=== PATIENT | male | born 1970 | race Caucasian/White ===

== ENCOUNTER 2017-12-27 22:26 | Emergency (ER) | payer OTHER ==
[2017-12-27] MEDS ORDERED: MORPHINE 4 MG/ML SYR ONE (23:10)
[2017-12-27] MEDS ORDERED: NA CHLORIDE 0.9% 1,000 ML ONE (23:10)
[2017-12-27] MEDS ORDERED: ONDANSETRON 4 MG/2 ML VIAL ONE (23:12)
[2017-12-27 23:18] LABS: Absolute Lymphocytes (CBC) 2.2 K/uL (0.7-4.9); Absolute Monocytes 0.7 K/uL (0.1-1.3); Absolute Neutrophil 8.3 K/uL (1.8-8.0); Basophils % 0.4 % (0-1.3); Eosinophils % 1.6 % (0-4.4); Hematocrit 48.9 % (39.6-49.0); Lymphocytes % 19.2 % (15.3-44.8); MCH 29.3 pg (27.0-35.0); MPV 8.5 fL (7.6-11.3); Monocytes % 5.9 % (3.3-12.3); RBC Red Blood Cell Count 5.75 M/uL (4.33-5.43)
[2017-12-27 23:32] LABS: Potassium 3.4 mEq/L (3.6-5.0)
[2017-12-27 23:39] LABS: Bilirubin Direct 0.1 mg/dL (0-0.2); Bilirubin Total 0.5 mg/dL (0.3-1.2); Protein, Total 6.7 g/dL (6.0-8.3)
[2017-12-27] MEDS ORDERED: PROMETHAZINE 25 MG TABLET ONE (23:40)
[2017-12-27] MEDS ORDERED: PROMETHAZINE 25 MG/ML VIAL ONE (23:41)
--- NOTE | 2017-12-28 00:18 | EDPHYS ---
Physician Documentation [facility] Name: Steve Banda Jr Age: 47 yrs Sex: Male : 1970 Arrival Date: 12/27/2017 Time: 22:26 Bed 28 Private MD: London Tang R ED Physician Altaf Bañuelos HPI: 12/27 22:58 This 47 yrs old Male presents to ER via Ambulatory with complaints of pkl Abdominal Pain. 22:58 The patient complains of pain in the left flank. Location: left lower quadrant. Onset: pkl The symptoms/episode began/occurred just prior to arrival, 1 hour(s) ago. Associated signs and symptoms: The patient has no apparent associated signs or symptoms. The patient has experienced similar episodes in the past, a few times, H/O Kidney stones. Historical: - Allergies: 22:38 No Known Allergies; aa1 - Home Meds: 22:38 None [Active]; aa1 - PMHx: 22:38 Kidney stones; aa1 - PSHx: 22:38 Lithotripsy; aa1 - Immunization history:: Adult Immunizations up to date. - Social history:: Smoking status: Patient/guardian denies using tobacco. - Ebola Screening: : No symptoms or risks identified at this time. ROS: 22:58 Eyes: Negative for injury, pain, redness, and discharge, ENT: Negative for injury, pkl pain, and discharge, Neck: Negative for injury, pain, and swelling, Cardiovascular: Negative for chest pain, palpitations, and edema, Respiratory: Negative for shortness of breath, cough, wheezing, and pleuritic chest pain, Abdomen/GI: Negative for abdominal pain, nausea, vomiting, diarrhea, and constipation. 22:58 Back: Positive for flank pain, on the left. 22:58 : Negative for urinary symptoms. 22:58 MS/extremity: Negative for acute changes. 22:58 Skin: Negative for rash. 22:58 Neuro: Negative for altered mental status. Exam: 22:58 Head/Face: Normocephalic, atraumatic. Eyes: Pupils equal round and reactive to light, pkl extra-ocular motions intact. Lids and lashes normal. Conjunctiva and sclera are non-icteric and not injected. Cornea within normal limits. Periorbital areas with no swelling, redness, or edema. ENT: Nares patent. No nasal discharge, no septal abnormalities noted. Tympanic membranes are normal and external auditory canals are clear. Oropharynx with no redness, swelling, or masses, exudates, or evidence of obstruction, uvula midline. Mucous membranes moist. Neck: Trachea midline, no thyromegaly or masses palpated, and no cervical lymphadenopathy. Supple, full range of motion without nuchal rigidity, or vertebral point tenderness. No Meningismus. Chest/axilla: Normal chest wall appearance and motion. Nontender with no deformity. No lesions are appreciated. Cardiovascular: Regular rate and rhythm with a normal S1 and S2. No gallops, murmurs, or rubs. Normal PMI, no JVD. No pulse deficits. Respiratory: Lungs have equal breath sounds bilaterally, clear to auscultation and percussion. No rales, rhonchi or wheezes noted. No increased work of breathing, no retractions or nasal flaring. Abdomen/GI: Soft, non-tender, with normal bowel sounds. No distension or tympany. No guarding or rebound. No evidence of tenderness throughout. 22:58 Back: pain, that is moderate, of the left flank. 22:58 : Exam negative for acute changes. 22:58 Musculoskeletal/extremity: Exam is negative for acute changes. 22:58 Skin: Exam negative for rash. 22:58 Neuro: Orientation: is normal, Mentation: is normal, Cranial nerves: grossly normal, Motor: is normal. Vital Signs: 22:38 BP 154 / 106; Pulse 91; Resp 18; Temp 97.6; Pulse Ox 98% on R/A; Weight 115.67 kg; aa1 Height 5 ft. 9 in. (175.26 cm); Pain 02/26; 12/28 00:10 BP 147 / 103; Pulse 78; Resp 18; Pulse Ox 100% on R/A; rk2 12/27 22:38 Body Mass Index 37.66 (115.67 kg, 175.26 cm) aa1 MDM: 12/27 22:52 Patient medically screened. pkl 12/28 00:14 Data reviewed: vital signs, nurses notes, lab test result(s), radiologic studies, CT pkl scan. 12/27 22:57 Order name: Amylase, Serum; Complete Time: 23:59 pkl 06/10 22:57 Order name: Basic Metabolic Panel; Complete Time: 23:59 pkl 12/27 22:57 Order name: CBC with Diff; Complete Time: 23:59 pkl 12/27 22:57 Order name: Creatinine for Radiology; Complete Time: 23:59 pkl 12/27 22:57 Order name: Hepatic Function; Complete Time: 23:59 pkl 12/27 22:57 Order name: Lipase; Complete Time: 23:59 pkl 12/27 22:58 Order name: CT Stone Protocol pkl 12/27 22:57 Order name: IV Saline Lock; Complete Time: 23:15 pkl 12/27 22:57 Order name: Labs collected and sent; Complete Time: 23:15 pkl Administered Medications: 12/27 23:15 Drug: NS 0.9% 1000 ml Route: IV; Rate: 1000 ml; Site: left antecubital; rk2 23:15 Drug: morphine 4 mg Route: IVP; Site: left antecubital; rk2 12/28 00:44 Follow up: Response: No adverse reaction rk2 12/27 23:15 Drug: Zofran 4 mg Route: IVP; Site: left antecubital; rk2 12/28 00:44 Follow up: Response: No adverse reaction rk2 12/27 23:43 Drug: Phenergan 12.5 mg Route: IVP; Site: left antecubital; rk2 12/28 00:43 Follow up: Response: No adverse reaction rk2 00:39 Drug: K-Dur 20 mEq Route: PO; rk2 00:43 Follow up: Response: No adverse reaction rk2 00:39 Drug: TORadol 30 mg Route: IVP; Site: left antecubital; rk2 00:43 Follow up: Response: No adverse reaction rk2 Disposition: 12/28/17 00:17 Discharged to Home. Impression: Left ureteral calculus with mild hydronephrosis and hydroureter. - Condition is Stable. - Prescriptions for Tylenol- Codeine #3 300-30 mg Oral Tablet - take 2 tablet by ORAL route every 6 hours As needed; 30 tablet. Zofran 4 mg Oral Tablet - take 1 tablet by ORAL route every 12 hours As needed; 10 tablet. Flomax 0.4 mg Oral Capsule, Sust. Release 24 hr - take 1 capsule by ORAL route once daily 1/2 hour following the same meal each day; 30 capsule. - Medication Reconciliation Form, Thank You Letter, Antibiotic Education, Prescription Opioid Use form. - Follow up: Camila Marquez MD; When: 1 - 2 days; Reason: Re-evaluation by your physician. Signatures: Dispatcher [employer] Val Davison RN RN aa1 Altaf Bañuelos MD MD pkl Aarti Marshall RN RN rk2 Corrections: (The following items were deleted from the chart) 00:46 00:17 12/28/2017 00:17 Discharged to Home. Impression: Left ureteral calculus with mild rk2 hydronephrosis and hydroureter. Condition is Stable. Forms are Medication Reconciliation Form, Thank You Letter, Antibiotic Education, Prescription Opioid Use. Follow up: Camila Maruqez; When: 1 - 2 days; Reason: Re-evaluation by your physician. pkl
--- NOTE | 2017-12-28 00:18 | ER ---
Nurse's Notes [facility] Name: Steve Banda Jr Age: 47 yrs Sex: Male : 1970 Arrival Date: 12/27/2017 Time: 22:26 Bed 28 Private MD: London Tang R Diagnosis: Left ureteral calculus with mild hydronephrosis and hydroureter Presentation: 12/27 22:37 Presenting complaint: Patient states: sudden onset LLQ pain that radiates to back aa1 approx 45 mins [employer]. Reports hx of kidney stones and is concerned he may have another one. Transition of care: patient was not received from another setting of care. Onset of symptoms was December 27, 2017. Risk Assessment: Do you want to hurt yourself or someone else? Patient reports no desire to harm self or others. Initial Sepsis Screen: Does the patient meet any 2 criteria? No. Patient's initial sepsis screen is negative. Does the patient have a suspected source of infection? Yes: Acute abdominal pain. Care prior to arrival: None. 22:37 Method Of Arrival: Ambulatory aa1 22:37 Acuity: BENJA 3 aa1 Triage Assessment: 22:38 General: Appears in no apparent distress. comfortable, Behavior is calm, cooperative, aa1 appropriate for age. Historical: - Allergies: 22:38 No Known Allergies; aa1 - Home Meds: 22:38 None [Active]; aa1 - PMHx: 22:38 Kidney stones; aa1 - PSHx: 22:38 Lithotripsy; aa1 - Immunization history:: Adult Immunizations up to date. - Social history:: Smoking status: Patient/guardian denies using tobacco. - Ebola Screening: : No symptoms or risks identified at this time. Screenin:00 Abuse screen: Denies threats or abuse. rk2 23:00 Nutritional screening: No deficits noted. Tuberculosis screening: No symptoms or risk rk2 factors identified. Fall Risk None identified. Assessment: 23:00 Pain: Complains of pain in abdomen. GI: Bowel sounds rk2 23:00 General: Appears uncomfortable, well developed, well nourished, Behavior is calm, rk2 cooperative. Neuro: Level of Consciousness is alert, obeys commands, Oriented to person, place, time, situation. Respiratory: Airway is patent Respiratory effort is even, unlabored, Respiratory pattern is regular, symmetrical. Derm: Skin is pink, warm \T\ dry. 23:22 Reassessment: Returned from CT. rk2 23:44 Reassessment: Verbal order from Dr. Bañuelos Phenergan 12.5 mg IV. rk2 Vital Signs: 22:38 BP 154 / 106; Pulse 91; Resp 18; Temp 97.6; Pulse Ox 98% on R/A; Weight 115.67 kg; aa1 Height 5 ft. 9 in. (175.26 cm); Pain 8/10; 12/28 00:10 BP 147 / 103; Pulse 78; Resp 18; Pulse Ox 100% on R/A; rk2 12/27 22:38 Body Mass Index 37.66 (115.67 kg, 175.26 cm) aa1 ED Course: 12/27 22:26 Patient arrived in ED. ds1 22:26 London Tang MD is Private Physician. ds1 22:38 Triage completed. aa1 22:38 Arm band placed on right wrist. aa1 22:40 Aarti Marshall RN is Primary Nurse. rk2 22:52 Altaf Bañuelos MD is Attending Physician. pkl 23:00 Patient has correct armband on for positive identification. rk2 23:00 Pulse ox on. rk2 23:15 CT Stone Protocol Sent. rk2 23:19 CT Stone Protocol In Process Unspecified. EDMS 12/28 00:04 CT completed. Patient tolerated procedure well. Patient moved to CT via wheelchair. eh Patient moved back from CT. 00:15 Camila Marquez MD is Referral Physician. pkl 00:45 No provider procedures requiring assistance completed. IV discontinued. rk2 Administered Medications: 12/27 23:15 Drug: NS 0.9% 1000 ml Route: IV; Rate: 1000 ml; Site: left antecubital; rk2 23:15 Drug: morphine 4 mg Route: IVP; Site: left antecubital; rk2 12/28 00:44 Follow up: Response: No adverse reaction rk2 12/27 23:15 Drug: Zofran 4 mg Route: IVP; Site: left antecubital; rk2 12/28 00:44 Follow up: Response: No adverse reaction rk2 12/27 23:43 Drug: Phenergan 12.5 mg Route: IVP; Site: left antecubital; rk2 12/28 00:43 Follow up: Response: No adverse reaction rk2 00:39 Drug: K-Dur 20 mEq Route: PO; rk2 00:43 Follow up: Response: No adverse reaction rk2 00:39 Drug: TORadol 30 mg Route: IVP; Site: left antecubital; rk2 00:43 Follow up: Response: No adverse reaction rk2 Outcome: 00:17 Discharge ordered by . jaziel 00:45 Discharged to home ambulatory. rk2 00:45 Condition: good 00:45 Discharge instructions given to patient, Prescriptions given X 3. 00:46 Patient left the ED. rk2 Signatures: Dispatcher [employer] Val Davison RN RN aa1 Altaf Bañuelos MD MD pkl Hagler, Ervin eh Sanford, Demi ds1 Aarti Marshall RN RN rk2
[2017-12-28] MEDS ORDERED: POTASSIUM CL SA 10 MEQ TAB PO ONE (00:33)
[2017-12-28] MEDS ORDERED: KETOROLAC 30 MG/ML INJ ONE (00:33)
--- NOTE | 2017-12-28 08:39 | RAD REPORT ---
EXAM DESCRIPTION: CT - Stone Protocol - 12/28/2017 4:30 am CLINICAL HISTORY: Abdominal pain. Right flank pain with vomiting COMPARISON: None. TECHNIQUE: Computed axial tomography of the abdomen pelvis was obtained without oral or IV contrast. Lack of IV and oral contrast limits evaluation of solid organs, bowel, and vessels. Coronal reformat marlen images were obtained and reviewed. A preliminary report was generated by [employer] and r roberto carlos prior to dictation All CT scans are performed using dose optimization technique as appropriate and may include automated exposure control or mA/KV adjustment according to patient size. FINDINGS: Bilateral renal calculi vary from 1-3 millimeters. Mild left hydronephrosis is seen. A 4 m illimeter calculus is present within the proximal left ureter Hounsfield unit 707. A bladder calculus is not present. Fatty infiltration liver seen. The spleen, pancreas and adrenals appear grossly normal There is no evidence of diverticulitis. The appendix appears normal Small bilateral hernias contain fat IMPRESSION: Negative for a genitourinary calculus
== END 2017-12-28 00:46 | disposition home or self-care (01) ==
LOC: ER 22:26
DX: N13.2 Hydronephrosis with renal and ureteral calculous obstruction (principal); Z87.442 Personal history of urinary calculi
CPT/HCPCS: 36415; 74176; 76377; 80048; 80076; 82150; 83690; 85025; 96374; 96375; 99284; J2405; J2550; J7030

== ENCOUNTER 2017-12-30 06:36 | Emergency (ER) | payer OTHER ==
[2017-12-30] MEDS ORDERED: ONDANSETRON 4 MG/2 ML VIAL ONE (07:09)
[2017-12-30] MEDS ORDERED: MORPHINE 4 MG/ML SYR ONE ×2 (07:09→07:58)
[2017-12-30] MEDS ORDERED: NA CHLORIDE 0.9% 1,000 ML ONE (07:09)
[2017-12-30 07:20] LABS: Absolute Lymphocytes (CBC) 1.6 K/uL (0.7-4.9); Absolute Monocytes 0.7 K/uL (0.1-1.3); Absolute Neutrophil 8.8 K/uL (1.8-8.0); Basophils % 0.3 % (0-1.3); Eosinophils % 1.1 % (0-4.4); Hematocrit 47.6 % (39.6-49.0); Lymphocytes % 14.4 % (15.3-44.8); MCH 29.2 pg (27.0-35.0); MCV 85.3 fL (80-100); MPV 8.8 fL (7.6-11.3); Monocytes % 6.5 % (3.3-12.3); RBC Red Blood Cell Count 5.59 M/uL (4.33-5.43)
[2017-12-30 07:25] LABS: Potassium 3.7 mEq/L (3.6-5.0)
[2017-12-30 07:31] LABS: Albumin 3.9 g/dL (3.2-5.5); Bilirubin Direct 0.1 mg/dL (0-0.2); Bilirubin Total 0.7 mg/dL (0.3-1.2); Protein, Total 6.5 g/dL (6.0-8.3)
--- NOTE | 2017-12-30 08:20 | RAD REPORT ---
EXAM DESCRIPTION: CT - Stone Protocol - 12/30/2017 7:17 am CLINICAL HISTORY: Flank pain. COMPARISON: 12/27/2017 TECHNIQUE: Axial images were obtained without oral or IV contrast. Lack of contrast limits solid org an and vascular assessment. The [id number] spans the entirety of the system partially obscuring uppermost abdomen and lung bases. Coronal reformatted images were obtained and reviewed. All CT scans are performed using dose optimization technique as appropriate and may include automated exposure control or mA/KV adjustment according to patient size. FINDINGS: The lower lung bunch are clear. Imaged portions of the liver and spleen show no suspicious findings on non-contrast imaging. The panc reas and adrenal glands are normal. No pathologic lymphadenopathy in the abdomen or pelvis. 4 mm stone in the left ureter demonstrates caudal migration since the comparative study, now the leve l of the superior endplate of L4. Mild left-sided hydronephrosis. Punctate bilateral nephrolithiasis again noted. No bowel obstruction, free air, free fluid or abscess. Normal appendix noted.Small to moderate fat co ntaining umbilical hernia. Small fat containing inguinal hernias bilaterally. No significant bony abnormality. IMPRESSION: Mild caudal migration of the previously noted 4 mm left ureter stone. Mild left hydronep hrosis persists. Bilateral nephrolithiasis again seen.
[2017-12-30] MEDS ORDERED: MEPERIDINE HCL 25 MG/0.5 ML ONE (09:00)
[2017-12-30] MEDS ORDERED: PROMETHAZINE 25 MG/ML VIAL ONE (09:00)
--- NOTE | 2017-12-30 09:16 | EDPHYS ---
Physician Documentation [facility] Name: Steve Banda Jr Age: 47 yrs Sex: Male : 1970 Arrival Date: 12/30/2017 Time: 06:37 Bed 18 Private MD: ED Physician Altaf Bañuelos HPI: 12/30 06:41 This 47 yrs old Male presents to ER via Unassigned with complaints of kav Abdominal Pain, Possible Kidney Stone. 06:41 The patient presents with abdominal pain. Onset: The symptoms/episode began/occurred kav acutely. 06:52 The symptoms do not radiate. Associated signs and symptoms: Pertinent positives: kav nausea, Pertinent negatives: fever, vomiting. The symptoms are described as achy. Modifying factors: The symptoms are alleviated by nothing, the symptoms are aggravated by nothing. Severity of pain: At its worst the pain was a 6 / 10 in the emergency department the pain is unchanged. The patient has experienced similar episodes in the past, chronically, but today's symptoms are worse. The patient has been recently seen at the [facility] Emergency Department, yesterday, for similar complaints labs were performed, CT scan was performed, was given a prescription for pain medications, was given a prescription for an antiemetic, flomax 4 mg po q daily. Seen by Urologist Dr. Liv Greene on 12/29/17 w/ no new prescriptions written. Advised to f/u on 01/11/18. Historical: - Allergies: 06:46 No Known Allergies; aa1 - PMHx: 06:46 Kidney stones; aa1 - PSHx: 06:46 Lithotripsy; aa1 - Immunization history:: Flu vaccine is not up to date. - Social history:: Smoking status: Patient/guardian denies using tobacco. - Ebola Screening: : No symptoms or risks identified at this time. - Family history:: not pertinent. - Hospitalizations: : No recent hospitalization is reported. - History obtained from: Old record. ROS: 06:55 Constitutional: Negative for fever, chills, and weight loss, Eyes: Negative for injury, kav pain, redness, and discharge, ENT: Negative for injury, pain, and discharge, Neck: Negative for injury, pain, and swelling, Cardiovascular: Negative for chest pain, palpitations, and edema, Respiratory: Negative for shortness of breath, cough, wheezing, and pleuritic chest pain, Back: Negative for injury and pain, : Negative for injury, bleeding, discharge, and swelling, MS/Extremity: Negative for injury and deformity, Skin: Negative for injury, rash, and discoloration, Neuro: Negative for headache, weakness, numbness, tingling, and seizure, Psych: Negative for depression, anxiety, suicide ideation, homicidal ideation, and hallucinations, Allergy/Immunology: Negative for hives, rash, and allergies, Endocrine: Negative for neck swelling, polydipsia, polyuria, polyphagia, and marked weight changes, Hematologic/Lymphatic: Negative for swollen nodes, abnormal bleeding, and unusual bruising. 06:55 Abdomen/GI: Positive for abdominal pain, nausea, of the left lower quadrant, Negative for vomiting, diarrhea, abdominal distension. Exam: 06:55 Constitutional: This is a well developed, well nourished patient who is awake, alert, kav and in no acute distress. Head/Face: Normocephalic, atraumatic. Eyes: Pupils equal round and reactive to light, extra-ocular motions intact. Lids and lashes normal. Conjunctiva and sclera are non-icteric and not injected. Cornea within normal limits. Periorbital areas with no swelling, redness, or edema. ENT: Nares patent. No nasal discharge, no septal abnormalities noted. Tympanic membranes are normal and external auditory canals are clear. Oropharynx with no redness, swelling, or masses, exudates, or evidence of obstruction, uvula midline. Mucous membranes moist. Neck: Trachea midline, no thyromegaly or masses palpated, and no cervical lymphadenopathy. Supple, full range of motion without nuchal rigidity, or vertebral point tenderness. No Meningismus. Chest/axilla: Normal chest wall appearance and motion. Nontender with no deformity. No lesions are appreciated. Cardiovascular: Regular rate and rhythm with a normal S1 and S2. No gallops, murmurs, or rubs. Normal PMI, no JVD. No pulse deficits. Respiratory: Lungs have equal breath sounds bilaterally, clear to auscultation and percussion. No rales, rhonchi or wheezes noted. No increased work of breathing, no retractions or nasal flaring. Back: No spinal tenderness. No costovertebral tenderness. Full range of motion. Skin: Warm, dry with normal turgor. Normal color with no rashes, no lesions, and no evidence of cellulitis. MS/ Extremity: Pulses equal, no cyanosis. Neurovascular intact. Full, normal range of motion. Neuro: Awake and alert, GCS 15, oriented to person, place, time, and situation. Cranial nerves II-XII grossly intact. Motor strength 5/5 in all extremities. Sensory grossly intact. Cerebellar exam normal. Normal gait. Psych: Awake, alert, with orientation to person, place and time. Behavior, mood, and affect are within normal limits. 06:55 Abdomen/GI: Inspection: abdomen appears normal, Bowel sounds: normal, Palpation: mild abdominal tenderness, in the left lower quadrant. Vital Signs: 06:46 BP 157 / 114; Pulse 81; Resp 18; Temp 97.0; Pulse Ox 98% on R/A; Weight 115.67 kg; aa1 Height 5 ft. 9 in. (175.26 cm); Pain 7/10; 07:40 BP 156 / 107; Pulse 68; Resp 18 S; Temp 97.0(TE); Pulse Ox 97% on R/A; Pain 8/10; aa5 09:01 BP 134 / 94; Pulse 79; Resp 18; Pulse Ox 97% on R/A; mh5 06:46 Body Mass Index 37.66 (115.67 kg, 175.26 cm) aa1 MDM: 06:40 Medical screening is not applicable. [facility] 08:13 Data reviewed: vital signs, nurses notes. ED course: patient continued to c/o pain. kav Morphine 4 mg ordered. 08:37 ED course: pt continue to c/o pain and nausea. he reports that "...the morphine is not kav relieving the pain" Demerol 25 mg w/ Phenergan 12.5 mg diluted with NS iv x 1 dose. 09:02 Physician consultation: Liv Greene FUNCTIONAL CONSULTANT was called at 09:05, was contacted at 09:05, [facility] regarding patient's condition, HALLE Greene was called by the patient's when I was in the room. She advised to continue with current treatment plan for pain, continue Flomax and f/u with her office for continued evaluation and care.. 12/30 06:52 Order name: Basic Metabolic Panel; Complete Time: 08:00 [facility] 12/30 08:00 Interpretation: Normal except: GFR 77. 12/30 06:52 Order name: CBC with Diff; Complete Time: 08:00 v 12/30 08:00 Interpretation: WBC 11.4; RBC 5.59; MADISON% 77.7; LYM% 14.4; NEUT A 8.8. 12/30 06:52 Order name: Creatinine for Radiology; Complete Time: 08:01 12/30 08:01 Interpretation: Within normal limits. 12/30 06:52 Order name: Hepatic Function; Complete Time: 08:01 12/30 08:01 Interpretation: Within normal limits. 12/30 06:52 Order name: Lipase; Complete Time: 08:01 12/30 08:01 Interpretation: Within normal limits. 12/30 06:52 Order name: Urine Microscopic Only 12/30 06:59 Order name: CT Stone Protocol: LLQ Abdominal Pain; PMXH: Nephrolithiasis; Complete [facility] Time: 08:38 12/30 08:41 Interpretation: Abnormal: 4mm stone left ureter with mild left hydronephrosis. 12/30 08:16 Order name: Urine Dipstick--Ancillary (enter results) 12/30 06:52 Order name: IV Saline Lock; Complete Time: 07:35 v 12/30 06:52 Order name: Labs collected and sent; Complete Time: 07:35 ka 12/30 06:52 Order name: Urine Dipstick-Ancillary (obtain specimen); Complete Time: 07:35 kav Administered Medications: 07:08 Drug: NS 0.9% 1000 ml Route: IV; Rate: 1000 ml; Site: right antecubital; aa5 07:08 Drug: morphine 4 mg Route: IVP; Site: right antecubital; aa5 07:10 Follow up: Response: No adverse reaction aa5 07:08 Drug: Zofran 4 mg Route: IVP; Site: right antecubital; aa5 07:10 Follow up: Response: No adverse reaction aa5 08:01 Drug: morphine 4 mg Route: IVP; Site: right antecubital; aa5 08:15 Follow up: Response: No adverse reaction aa5 08:55 Drug: Demerol 25 mg Route: IVP; Site: right antecubital; aa5 09:00 Follow up: Response: No adverse reaction aa5 08:55 Drug: Phenergan 12.5 mg Route: IVP; Site: right antecubital; aa5 09:00 Follow up: Response: No adverse reaction aa5 Disposition: 12/30/17 09:15 Discharged to Home. Impression: Calculus of kidney and ureter, Hydronephrosis with renal and ureteral calculous obstruction. - Condition is Stable. - Discharge Instructions: Kidney Stones, [id number], Hydronephrosis, Dietary Guidelines to Help Prevent Kidney Stones. - Medication Reconciliation Form, Thank You Letter, Antibiotic Education, Prescription Opioid Use form. - Follow up: Daniela Estrada; When: 1 - 2 days; Reason: Recheck today's complaints, Continuance of care, Re-evaluation by your physician. - Problem is chronic. - Symptoms have improved. - Notes: f/u with FUNCTIONAL CONSULTANT Essie Greene/Dr. Estrada's old office 1-2 days for further evaluation and treatment Addendum: 01/03/2018 19:02 Co-signature as Attending Physician, Altaf Bañuelos MD. brent ramsey Signatures: Dispatcher [employer] EDVal Goodwin RN RN aa1 Altaf Bañuelos MD MD pkl Vern, Katherine, PEDIATRIC CLINICAL NURSE SPECIALIST PEDIATRIC CLINICAL NURSE SPECIALIST Tiffanie Arnold, RN RN aa5 Corrections: (The following items were deleted from the chart) 12/30 09:22 09:15 12/30/2017 09:15 Discharged to Home. Impression: Calculus of kidney and ureter; aa5 Hydronephrosis with renal and ureteral calculous obstruction. Condition is Stable. Forms are Medication Reconciliation Form, Thank You Letter, Antibiotic Education, Prescription Opioid Use. Follow up: Daniela Estrada; When: 1 - 2 days; Reason: Recheck today's complaints, Continuance of care, Re-evaluation by your physician. Problem is chronic. Symptoms have improved. kaarlyn
--- NOTE | 2017-12-30 09:16 | ER ---
Nurse's Notes [facility] Name: Steve Banda Jr Age: 47 yrs Sex: Male : 1970 Arrival Date: 12/30/2017 Time: 06:37 Bed 18 Private MD: Diagnosis: Calculus of kidney and ureter;Hydronephrosis with renal and ureteral calculous obstruction Presentation: 12/30 06:43 Presenting complaint: Patient states: he was seen here 3 days ago and was diagnosed aa1 with a kidney stone but has not passed it yet and is beginning to have more pain. Transition of care: patient was not received from another setting of care. Onset of symptoms was December 27, 2017. Risk Assessment: Do you want to hurt yourself or someone else? Patient reports no desire to harm self or others. Initial Sepsis Screen: Does the patient meet any 2 criteria? No. Patient's initial sepsis screen is negative. Does the patient have a suspected source of infection? No. Patient's initial sepsis screen is negative. Care prior to arrival: None. 06:43 Method Of Arrival: Ambulatory aa1 06:43 Acuity: BENJA 3 aa1 Triage Assessment: 06:46 General: Appears in no apparent distress. comfortable, Behavior is calm, cooperative, aa1 appropriate for age. Historical: - Allergies: 06:46 No Known Allergies; aa1 - PMHx: 06:46 Kidney stones; aa1 - PSHx: 06:46 Lithotripsy; aa1 - Immunization history:: Flu vaccine is not up to date. - Social history:: Smoking status: Patient/guardian denies using tobacco. - Ebola Screening: : No symptoms or risks identified at this time. - Family history:: not pertinent. - Hospitalizations: : No recent hospitalization is reported. - History obtained from: Old record. Screenin:05 Abuse screen: Denies threats or abuse. Nutritional screening: No deficits noted. aa5 Tuberculosis screening: No symptoms or risk factors identified. Fall Risk None identified. Assessment: 07:05 General: Appears uncomfortable, Behavior is calm, cooperative. Pain: Complains of pain aa5 in left flank Pain radiates to left lower quadrant and left groin Pain currently is 8 out of 10 on a pain scale. Quality of pain is described as sharp, shooting, stabbing, Pain began today around 0300 Is continuous. Neuro: Level of Consciousness is awake, alert, obeys commands, Oriented to person, place, time, situation. Cardiovascular: Heart tones S1 S2 present Rhythm is regular. Respiratory: Airway is patent Respiratory effort is even, unlabored, Respiratory pattern is regular, symmetrical. GI: Abdomen is round Bowel sounds present X 4 quads. Abd is soft X 4 quads Abdomen is tender to palpation in right lower quadrant and left lower quadrant. : Reports "I had trouble urinating today around 3am, I only peed a little bit". EENT: No signs and/or symptoms were reported regarding the EENT system. Derm: Skin is pink, warm \\T\\ dry. Musculoskeletal: Range of motion: intact in all extremities. 07:36 Reassessment: Patient and/or family updated on plan of care and expected duration. Pain aa5 level reassessed. Patient is alert, oriented x 3, equal unlabored respirations, skin warm/dry/pink. Patient states feeling better. Pt back from CT scan. Pain: Pain currently is 5 out of 10 on a pain scale. 08:00 Reassessment: Patient is alert, oriented x 3, equal unlabored respirations, skin aa5 warm/dry/pink. Pt reports pain has increased 8/10 on a pain scale, Lenin DEPARTMENT HEAD notified . General: Appears uncomfortable. 08:55 Reassessment: Patient and/or family updated on plan of care and expected duration. Pain aa5 level reassessed. Patient is alert, oriented x 3, equal unlabored respirations, skin warm/dry/pink. Patient states symptoms have not improved. 08:55 General: Appears uncomfortable. Pain: Pain currently is 8 out of 10 on a pain scale. aa5 09:20 Reassessment: Patient is alert, oriented x 3, equal unlabored respirations, skin aa5 warm/dry/pink. Patient states feeling better. Pain: Pain currently is 6 out of 10 on a pain scale. Vital Signs: 06:46 BP 157 / 114; Pulse 81; Resp 18; Temp 97.0; Pulse Ox 98% on R/A; Weight 115.67 kg; aa1 Height 5 ft. 9 in. (175.26 cm); Pain 7/10; 07:40 BP 156 / 107; Pulse 68; Resp 18 S; Temp 97.0(TE); Pulse Ox 97% on R/A; Pain 8/10; aa5 09:01 BP 134 / 94; Pulse 79; Resp 18; Pulse Ox 97% on R/A; mh5 06:46 Body Mass Index 37.66 (115.67 kg, 175.26 cm) aa1 ED Course: 06:37 Patient arrived in ED. ds1 06:40 Deb Arthur FNP is [facility]. kav 06:40 Altaf Bañuelos MD is Attending Physician. kav 06:46 Triage completed. aa1 06:46 Arm band placed on right wrist. Patient placed in an exam room, on a stretcher. aa1 07:05 Patient has correct armband on for positive identification. Bed in low position. Call aa5 light in reach. Side rails up X2. 07:05 Initial lab(s) drawn, by me, sent to lab. Inserted saline lock: 18 gauge in right aa5 antecubital area, using aseptic technique. Blood collected. 07:16 CT completed. Patient tolerated procedure well. Patient moved to CT via wheelchair. vr Patient moved back from CT. 07:16 CT Stone Protocol: LLQ Abdominal Pain; PMXH: Nephrolithiasis In Process Unspecified. EDMS 07:35 Tiffanie Rapp, RN is Primary Nurse. aa5 08:07 No provider procedures requiring assistance completed. aa5 09:15 Daniela Estrada MD is Referral Physician. kav 09:20 IV discontinued, intact, bleeding controlled, No redness/swelling at site. Pressure aa5 dressing applied. Administered Medications: 07:08 Drug: NS 0.9% 1000 ml Route: IV; Rate: 1000 ml; Site: right antecubital; aa5 07:08 Drug: morphine 4 mg Route: IVP; Site: right antecubital; aa5 07:10 Follow up: Response: No adverse reaction aa5 07:08 Drug: Zofran 4 mg Route: IVP; Site: right antecubital; aa5 07:10 Follow up: Response: No adverse reaction aa5 08:01 Drug: morphine 4 mg Route: IVP; Site: right antecubital; aa5 08:15 Follow up: Response: No adverse reaction aa5 08:55 Drug: Demerol 25 mg Route: IVP; Site: right antecubital; aa5 09:00 Follow up: Response: No adverse reaction aa5 08:55 Drug: Phenergan 12.5 mg Route: IVP; Site: right antecubital; aa5 09:00 Follow up: Response: No adverse reaction aa5 Outcome: 09:15 Discharge ordered by . connor 09:20 Discharged to home via wheelchair, with significant other. aa5 09:20 Condition: improved 09:20 Discharge instructions given to patient, Instructed on discharge instructions, follow up and referral plans. Demonstrated understanding of instructions, follow-up care, Pt was instructed by DEPARTMENT HEAD to continue taking medications previously prescribed here. 09:22 Patient left the ED. aa5 Signatures: Dispatcher [employer] Val Davison RN RN aa1 Deb Arthur, SUTURE WINDER HAND SUTURE WINDER HAND Catalina Loaiza Audri, RN RN aa5 Guera Simons [facility]
[2017-12-30 09:57] LABS: Urine Bacteria NONE SEEN /HPF (NONE SEEN); Urine Culture Reflex Order NOT NEEDED
[2017-12-30 10:06] LABS: Urine Blood 1+ (NEG); Urine Glucose NEGATIVE (NEG); Urine Protein NEGATIVE (NEG); Urine Specific Gravity 1.025 (1.005-1.030)
== END 2017-12-30 09:22 | disposition home or self-care (01) ==
LOC: ER 06:36
DX: N13.2 Hydronephrosis with renal and ureteral calculous obstruction (principal); Z87.442 Personal history of urinary calculi
CPT/HCPCS: 36415; 74176; 76377; 80048; 80076; 81003; 81015; 83690; 85025; 96374; 96375; 99284; J2175; J2405; J2550; J7030